=== PATIENT | female | born 1965 | race Two or more races ===

== ENCOUNTER 2019-04-22 11:54 | Emergency (ER) | payer MEDICAID ==
[~2019-04-22] VITALS: Ht 165.1 cm; Wt 79.4 kg
--- NOTE | 2019-04-22 12:10 | NUR ---
STEPHANIE CEBALLOS 37 From [facility] "was getting scared/stressed/felt faint", TO ER BED 16, HOOKED TO REFRIGERATION PERSON, CHANGED TO HOSP GOWN, PROVIDED W WARM BLANKET, AWAITING MD SANDHU
--- NOTE | 2019-04-22 12:28 | NUR ---
carmita claudio at bedside
[2019-04-22] MEDS ORDERED: ACETAMINOPHEN ES 500 MG TABLET ONE (12:39)
[2019-04-22] MEDS ORDERED: LORAZEPAM INJ 2 MG/ML VIAL ONE (12:40)
[2019-04-22 12:49] LABS: BASOPHILS % (AUTO) 0.9 % (0.0-2.0); EOSINOPHILS % (AUTO) 1.7 % (0.0-6.0); HEMATOCRIT 39 % (33-45); HEMOGLOBIN 12.7 g/dL (11.5-14.8); LYMPHOCYTES # (AUTO) 1.4 /CMM (0.8-4.8); LYMPHOCYTES % (AUTO) 27.7 % (20.0-44.0); MEAN CORPUSCULAR HGB CONC 33 g/dl (31.0-36.0); MEAN CORPUSCULAR VOLUME 83 fL (82-100); MONOCYTES # (AUTO) 0.4 /CMM (0.1-1.30); MONOCYTES % (AUTO) 7.2 % (2.0-12.0); NEUTROPHILS # (AUTO) 3.1 /CMM (1.8-8.9); NEUTROPHILS % (AUTO) 62.5 % (43.0-81.0); PLATELET COUNT (AUTO) 285 /CMM (150-450); WHITE BLOOD COUNT (AUTO) 4.9 K/uL (4.3-11.0)
[2019-04-22 12:56] LABS: CALCIUM, SERUM 9.2 mg/dL (8.5-10.1); CARBON DIOXIDE 31 mmol/L (21-32); CHLORIDE 106 mmol/L (98-107); CREATININE 0.7 mg/dL (0.6-1.3); GLUCOSE 100 mg/dL (74-106); POTASSIUM 3.7 mmol/L (3.5-5.1); SODIUM SERUM 142 mmol/L (136-145); UREA NITROGEN, BLOOD 12 mg/dL (7-18)
[2019-04-22] MEDS ORDERED: ACETAMINOPHEN 325 MG TABLET PO ONE (13:00)
[2019-04-22] MEDS ORDERED: LORAZEPAM INJ 2 MG/ML VIAL IV ONE (13:00)
[2019-04-22] MEDS ORDERED: IV NS 0.9% 1,000 ML BAG IV ONE (13:00)
[2019-04-22 13:01] LABS: ALANINE AMINOTRANSFERASE 23 U/L (12-78); ALBUMIN 3.6 g/dL (3.4-5.0); ALKALINE PHOSPHATASE 78 U/L (46-116); ASPARTATE AMINOTRANSFERASE 21 U/L (15-37); BILIRUBIN,DIRECT 0.2 mg/dL (0.0-0.2); BILIRUBIN,TOTAL 0.8 mg/dL (0.2-1.0); TOTAL PROTEIN, SERUM 7.7 g/dL (6.4-8.2)
--- NOTE | 2019-04-22 15:07 | NUR ---
IV removed. Catheter intact and site benign. Pressure and 4x4 applied to site. No bleeding noted.Patient discharged to home in stable condition. Written and verbal after care instructions given. Patient verbalizes understanding of instruction.
[2019-04-22 15:25] VITALS: BP 132/79
== END 2019-04-22 15:20 | disposition home or self-care (01) ==
LOC: ER 11:56
DX: R55 Syncope and collapse (principal); F41.9 Anxiety disorder, unspecified; E04.1 Nontoxic single thyroid nodule
CPT/HCPCS: 36415; 70450; 72125; 76536; 80048; 80076; 84484; 85025; 93005; 96361; 96374; 99284; J2060; J7030